=== PATIENT | male | born 1985 | race Caucasian/White ===

== ENCOUNTER 2017-03-05 05:40 | Emergency (ER) | payer OTHER ==
[~2017-03-05] VITALS: Ht 170.2 cm; Wt 59.0 kg
[2017-03-05 05:47] VITALS: BP_SYST 136
--- NOTE | 2017-03-05 05:48 | NUR ---
Placed pt in triage for evaluation
--- NOTE | 2017-03-05 05:49 | NUR ---
Pt came into the ER in stable condition. Pt c/o unable to sleep last night due to cough. Pt stated that he has a productive cough and sputum is green. Pt stated that he was sick since last week and was able to recover and return to work, but last night he had a fever. Pt stated he has been medicating w/ Mucinex. Pt stated that he has been coughing so much that he is having chest wall pain. -sob. No acute distress noted.
--- NOTE | 2017-03-05 05:50 | NUR ---
ER at bedside examining patient.
--- NOTE | 2017-03-05 05:54 | NUR ---
Patient returned to waiting room, awaiting for available bed.
[2017-03-05 06:32] VITALS: BP_SYST 136
--- NOTE | 2017-03-05 06:32 | NUR ---
Patient given written and verbal discharge instructions and verbalizes understanding. ER MD PETIT discussed with patient the results and treatment provided. Patient in stable condition. ID arm band removed. Rx of ALBUTEROL INHALER, ZITHROMAX, TYLENOL W/ CODEINE given. Patient educated on pain management and to follow up with PMD. Pain Scale 0/10. Opportunity for questions provided and answered. PT DISCHARGED FROM WAITING ROOM.
== END 2017-03-05 06:32 | disposition home or self-care (01) ==
LOC: SED 05:40
DX: J20.9 Acute bronchitis, unspecified (principal)
CPT/HCPCS: 36415; 86710; 99284

== ENCOUNTER 2017-03-10 14:35 | Emergency (ER) | payer OTHER ==
[~2017-03-10] VITALS: Ht 172.7 cm; Wt 59.0 kg
[2017-03-10 14:35] VITALS: BP_SYST 121
[2017-03-10 16:28] LABS: BASOPHILS % (AUTO) 0.6 % (0.0-2.0); EOSINOPHILS # (AUTO) 0.1 K/uL (0.0-0.4); EOSINOPHILS % (AUTO) 1.4 % (0.0-4.0); HEMATOCRIT 46.2 % (36-54); HEMOGLOBIN 15.5 g/dL (14.0-18.0); LYMPHOCYTES % (AUTO) 33.9 % (20.5-51.5); MEAN CORPUSCULAR HEMOGLOBIN 31 pg (27-31); MEAN CORPUSCULAR HGB CONC 34 % (32-36); MEAN CORPUSCULAR VOLUME 93 fL (79.0-98.0); MONOCYTES # (AUTO) 0.4 K/uL (0.0-1.0); MONOCYTES % (AUTO) 6.6 % (1.7-9.3); NEUTROPHILS # (AUTO) 3.5 K/uL (1.8-7.7); NEUTROPHILS % (AUTO) 57.5 % (40.0-70.0); PLATELET COUNT (AUTO) 371 K/uL (130-430); RED BLOOD CELL COUNT(AUTO) 4.96 MIL/uL (4.2-6.2); RED CELL DISTRIBUTION WIDTH 11.5 % (9.0-15.0)
[2017-03-10 16:41] LABS: CALCIUM 9.6 mg/dL (8.4-11.0); CREATININE 0.95 mg/dL (0.55-1.30); POTASSIUM 3.9 mmol/L (3.5-5.1)
[2017-03-10 16:45] LABS: INR 1.1 (0.80-1.20); PROTHROMBIN TIME 10.9 SECS (9.5-12.5)
[2017-03-10 16:46] LABS: ALBUMIN 3.8 g/dL (3.4-4.8); TOTAL BILIRUBIN 0.8 mg/dL (0.0-1.0)
[2017-03-10] MEDS ORDERED: LEVOFLOXACIN 500 MG TABLET PO ONE (17:00)
[2017-03-10 17:25] VITALS: BP_SYST 115
[2017-03-10 17:43] LABS: ERYTHROCYTE SEDIMENTATION RATE 22 MM/HR (0-15)
== END 2017-03-10 17:25 | disposition home or self-care (01) ==
LOC: SED 14:35
DX: J18.9 Pneumonia, unspecified organism (principal)
CPT/HCPCS: 36415; 71250-TC; 80053; 85025; 85610-TC; 85651-TC; 85730-TC; 99285